=== PATIENT | female | born 1960 | race African-American/Black ===

== ENCOUNTER 2022-10-24 10:07 | Emergency (ER) | payer OTHER, SELFPAY ==
--- NOTE | ~2022-10-24 | XR_ITS ---
Right Knee Technique: AP, lateral, and oblique views were obtained. Clinical History: Pain Findings: No fracture or dislocation is seen. Osseous alignment is anatomic. Mild tricompartmental de generative spurring noted. Soft tissues are unremarkable. No joint effusion is seen. Impression: Mild tricompartmental degenerative spurring. Reviewed, dictated and finalized at [facility]. [employer] Impression: Mild tricompartmental degenerative spurring.
[2022-10-24 10:27] VITALS: BP 186/104; PULSE 119; RESP 16; O2SAT 96
--- NOTE | 2022-10-24 10:58 | ED.FALL ---
HPI - Fall General Chief Complaint: Fall Stated Complaint: Right Knee/Shoulder/Left Arm Pain Time Seen by Provider: 10/24/22 10:45 Source: patient Mode of arrival: ambulatory Limitations: no limitations History of Present Illness HPI Narrative: 61-year-old female presented for complaint of right knee pain after fall yesterday. Pain is constant, described as aching and throbbing. Rates 9/10. She endorses the floor was ?gripping? causing her to lose balance and fall forward. She is unsure if she struck the knee on the ground. She denies numbness, tingling, weakness, swelling, bruising or decreased ROM. She took an ibuprofen last evening. Denies hitting her head or loss of consciousness. She also reports left upper arm discomfort. Denies decreased ROM. Related Data Home Medications Medication Instructions Recorded Confirmed furosemide 20 mg tablet 20 mg PO DAILY 10/24/22 10/24/22 losartan 100 mg tablet 100 mg PO DAILY 10/24/22 10/24/22 Allergies Allergy/AdvReac Type Severity Reaction Status Date / Time No Known Allergies Allergy Verified 10/24/22 11:05 Review of Systems Review of Systems: CONSTITUTIONAL: Denies body aches, fever, chills EYES: Denies visual changes CARDIOVASCULAR: Denies chest pain, palpitations, or edema. RESPIRATORY: Denies cough or dyspnea. GASTROINTESTINAL: Denies abdominal pain, nausea, vomiting, or diarrhea. SKIN: Denies rash, itching, or wounds. MUSCULOSKELETAL: per HPI NEUROLOGIC: Denies headache, numbness, tingling, or weakness. All systems reviewed & are unremarkable except as noted in HPI and below PMFSH Past Medical History Medical History (Updated 10/24/22 @ 11:19 by Smiley Queen APRN) CHF (congestive heart failure) Comments At time of signature, I have reviewed and agree with nursing past medical, surgical, social and family history unless otherwise noted. Please see nursing chart for further information. There is no relevant family history pertinent to the presenting complaint Exam Narrative: GENERAL: Well-appearing HEAD: Normocephalic, atraumatic. CHEST: Speaks in full sentences. No respiratory distress. HEART: Regular rate and rhythm. Normal and equal peripheral pulses. EXTREMITIES: RLE has normal strength and sensation, normal range of motion at knee, but endorses pain is constant. No swelling or ecchymosis, No point tenderness. No open wounds, or obvious deformity; alignment normal, pulse palpable and equal bilaterally, skin warm, dry, pink. Capillary refill less than 3 seconds. Gait with limp. LUE with full ROM. SKIN: Warm, dry, no rash. NEURO: Alert and oriented x3. PSYCH: anxious Course Course Emergency Course: Patient is aware of diagnosis, understands and agrees to treatment plan. Anticipatory guidance given. Patient agrees to follow-up as directed and is aware of reasons to seek care at the emergency department. Portions of this record may have been created with voice recognition software Level of Care: Express Care Visit Vital Signs Vital signs: Vital Signs Pulse Rate 119 H 10/24/22 10:27 Respiratory Rate 16 10/24/22 10:27 Blood Pressure 186/104 H 10/24/22 10:27 Pulse Oximetry 96 10/24/22 10:27 Oxygen Delivery Room Air 10/24/22 10:27 Pulse Rate 119 H 10/24/22 10:27 Respiratory Rate 16 10/24/22 10:27 Blood Pressure 186/104 H 10/24/22 10:27 Pulse Oximetry 96 10/24/22 10:27 Oxygen Delivery Room Air 10/24/22 10:27 Reviewed MDM - Fall MDM Narrative Medical decision making narrative: Results of x-ray reviewed with patient. Advised supportive measures and signs/symptoms to go to the ER. BP elevated, states she took meds just [employer]. Will give few tabs Rx motrin. will f/u with pcp. Pt is appropriate for outpt treatment and f/u. Differential Diagnosis Differential diagnosis: Likely other (knee tendon/ligament injury, contusion, arthritis, bursitis, patellar fracture) Imaging Data Radiologist's impression:
[2022-10-24 11:30] VITALS: BP 178/110
== END 2022-10-24 11:30 | disposition home or self-care (01) ==
PROVIDERS: Emergency Provider Nurse Practitioner Family
DX: M25.561 Pain in right knee (principal); M79.18 Myalgia, other site; I50.9 Heart failure, unspecified; W18.39XA Other fall on same level, initial encounter
CPT/HCPCS: 73564; 99203; G0463